=== PATIENT | male | born 1955 | race Caucasian/White ===

== ENCOUNTER 2018-05-25 15:49 | Emergency (ER) | payer BC, OTHER ==
[2018-05-25 16:41] VITALS: BP 107/65
[2018-05-25] MEDS ORDERED: Tetan/Diph/Pertus SYR(Tdap)* 0.5 ML SYR(BOOSTRIX) use SYR IM ONE (16:45)
[2018-05-25] MEDS ORDERED: Cephalexin CAP* 500 MG PO ONE (16:53)
[2018-05-25] MEDS ORDERED: Ciprofloxacin TAB* 500 MG PO ONE (16:54)
--- NOTE | 2018-05-25 17:13 | UC ---
Lower Extremity/Ankle HPI - HPI Summary HPI Summary: Patient states that around 3:30 PM today he stepped on a long nail that went through his shoe. He estimates that about 2 inches of the nail pierced through his left foot. He was unable to bear weight and pain shoots to the dorsum of his foot up to his calf. He states this happened in the shed that was previously a chicken coop. - History of Current Complaint Chief Complaint: UCWounds Stated Complaint: LEFT FOOT PUNCTURE WOUND Time Seen by Provider: 05/25/18 16:30 Hx Obtained From: Patient Onset/Duration: Sudden Onset, Lasting Hours Severity Initially: Moderate Severity Currently: Moderate Pain Intensity: 6 Aggravating Factor(s): Standing, Ambulation Alleviating Factor(s): Rest - Risk Factors Gout Risk Factors: Male DVT Risk Factors: Negative Septic Arthritis Risk Factor: Negative - Allergies/Home Medications Allergies/Adverse Reactions: Allergies Allergy/AdvReac Type Severity Reaction Status Date / Time Sulfa (Sulfonamide AdvReac Nausea Verified 05/25/18 16:41 Antibiotics) Home Medications: Home Medications Acetaminophen/Diphenhydramine [Acetaminophen Pm Caplet] 2 each PO BEDTIME [History Confirmed 05/25/18] Gabapentin 800 mg PO BID 05/25/18 [History Confirmed 05/25/18] Magnesium Oxide/Magnesium [Magnesium Elemental] 800 mg PO DAILY 05/25/18 [ History Confirmed 05/25/18] Propranolol TAB* [Inderal TAB*] 10 mg PO BID 05/25/18 [History Confirmed ] Sertraline HCl [Zoloft] 200 mg PO DAILY 05/25/18 [History Confirmed 05/25/18] Simvastatin [Zocor] 40 mg PO BEDTIME 05/25/18 [History Confirmed 05/25/18] Vitamin B Complex CAP* [B Complex CAP*] 1 cap PO DAILY 05/25/18 [History Confirmed 05/25/18] PMH/Surg Hx/FS Hx/Imm Hx Previously Healthy: Yes Endocrine History: Dyslipidemia Psychological History: Depression - Surgical History Surgical History: Yes Surgery Procedure, Year, and Place: GALL BLADDER,RIGHT KNEE ARTHOSCOPY. CLEF PALLET. RILGHT ARM INJURY REPAIR. NERVE BLOCK IN LUMBAR AREA IN SEPTEMBER 2014 - Social History Alcohol Use: None Substance Use Type: None Smoking Status (MU): Never Smoked Tobacco - Immunization History Most Recent Tetanus Shot: PT BELIEVES IT WAS 3 YEARS AGO Review of Systems Constitutional: Negative Musculoskeletal: Arthralgia, Myalgia All Other Systems Reviewed And Are Negative: Yes Physical Exam Triage Information Reviewed: Yes Appearance: Well-Appearing, No Pain Distress, Well-Nourished Vital Signs: Initial Vital Signs Temp 98 F 05/25/18 16:32 Pulse 91 05/25/18 16:32 Resp 16 05/25/18 16:32 BP 107/65 05/25/18 16:32 Pulse Ox 96 05/25/18 16:32 Vital Signs Reviewed: Yes Eyes: Positive: Conjunctiva Clear ENT: Positive: Normal ENT inspection Neck: Positive: Supple Respiratory: Positive: Chest non-tender Cardiovascular: Positive: Pulses Normal, Brisk Capillary Refill Musculoskeletal: Positive: Strength Intact, ROM Intact, No Edema, Other: - puncture wound on plantar aspect of left foot between 2nd and 3rd metatarsals. No soiling, no discharge, no induration, non tender to palpation Lower Extremity Course/Dx - Course Course Of Treatment: follow up with orthopedic surgery, s/p puncture wound with small foreign body btwn 2-3rd metatarsals of left foot. Continue antibiotics as prescribed, may take tylenol for pain as needed - Differential Dx/Diagnosis Provider Diagnoses: puncture wound foot. Foreign body in foot Discharge - Sign-Out/Discharge Documenting (check all that apply): Patient Departure All imaging exams completed and their final reports reviewed: Yes - Discharge Plan Condition: Stable Disposition: HOME Prescriptions: Cephalexin CAP* [Keflex CAP*] 500 mg PO TID 7 Days #21 cap Ciprofloxacin TAB* [Cipro 500 MG TAB*] 500 mg PO BID 7 Days #14 tab Patient Education Materials: Soft Tissue Foreign Body (ED), Puncture Wound (ED) , Ciprofloxacin (By mouth), Cephalexin (By mouth) Referrals: Orestes Argueta MD [Primary Care Provider] - Additional Instructions: please follow up with orthopedic surgery - Billing Disposition and Condition Condition: STABLE Disposition: Home
[2018-05-25] MEDS ORDERED: Ibuprofen TAB* 600 MG PO ONE (17:18)
--- NOTE | 2018-05-25 17:32 | RAD ---
INDICATION: The patient stepped on a nail. Although the puncture wound is reported to be on the plantar surface of the left foot in the region of the metatarsophalangeal joint, patient is reported on the dorsal foot. COMPARISON: None. TECHNIQUE: 2 views of the left foot were obtained. FINDINGS: On the AP view of the foot there is a tiny radiodense fragment in between the distal metaphyses of the second and third metatarsals. The adequately corticated bones are properly aligned. Joint spaces appear maintained. No fracture, dislocation or focal bony abnormality is seen. IMPRESSION: POSSIBLE METAL FRAGMENT LOCATED BETWEEN THE DISTAL METAPHYSES OF THE SECOND AND THIRD METATARSALS.
== END 2018-05-25 18:16 | disposition home or self-care (01) ==
LOC: UCCORT 15:49
DX: S91.332A Puncture wound without foreign body, left foot, initial encounter (principal); W45.0XXA Nail entering through skin, initial encounter; Y92.89 Other specified places as the place of occurrence of the external cause; Z23 Encounter for immunization
CPT/HCPCS: 90471; 90715; 99213; A9270-GY; G0463

== ENCOUNTER 2019-04-28 09:00 | Inpatient (IN) | payer BC ==
--- NOTE | 2019-04-18 14:24 | HP ---
HISTORY AND PHYSICAL: DATE OF ADMISSION/SURGERY: 04/28/19 DATE OF OFFICE VISIT: 04/15/19 SURGEON: Dr. Gabi Rodriguez. PROCEDURE: Revision left total knee replacement, femoral component . CHIEF COMPLAINT: Left knee pain. HISTORY OF PRESENT ILLNESS: Mr. Alvarado is a 63-year-old gentleman with 2 years of severe left knee pa in. The patient reports that he had a left total knee arthroplasty [address] Quijano in [facility]. Since that time, he has had severe 10/10 pain in the left knee. The patient reports for the first year he was okay, then he developed increasingly left knee pain over the last year. The patien t reports that this has become severe pain and has had swelling in the left knee. He can no longer a mbulate a block without severe severe. He has difficulty standing and stair climbing. He has had tr ied antiinflammatories, physical therapy and has used a cane without any relief. PAST MEDICAL HISTORY: 1. Osteoarthritis. 2. Depression. 3. Anxiety. PAST SURGICAL HISTORY: 1. Gastric bypass in 2014. 2. Left total knee arthroplasty in 2015. 3. Cholecystectomy in 2001. 4. Sinus surgery in 2004. MEDICATIONS: 1. Cyclobenzaprine HCL 10 mg p.o. daily. 2. Gabapentin 400 mg p.o. daily. 3. Sertraline HCL 100 mg p.o. daily. 4. Bupropion hydrochloride ER 100 mg p.o. daily. 5. Simvastatin 40 mg DICTATION ENDS HERE LINDY MURDOCK [id number]/[facility] #: [id number]
--- NOTE | 2019-04-18 15:47 | HP ---
AMENDED REPORT NOW INCLUDES DESIGNATED COSIGNER HISTORY AND PHYSICAL: DATE OF ADMISSION/SURGERY: 04/28/19 DATE OF OFFICE VISIT: 04/15/19 SURGEON: Dr. Gabi Rodriguez.* (DICTATED BY LINDY MEEKS) PROCEDURE: Revision left total knee replacement, femoral component, possible all three. CHIEF COMPLAINT: Left knee pain. HISTORY OF PRESENT ILLNESS: Mr. Sanchez is a 63-year-old gentleman with 2 years of severe left knee pain. He reports that he had a left total knee arthroplasty [address] Quijano in [place]. Since that time he has had severe 10/10 pain in the left knee. The patient reports that he also has some swelling of the left knee. He can no longer ambulate a block without severe pain. He has difficulty standing and stair climbing. He has had tried antiinflammatories, physical therapy, and has used a cane without relief. PAST MEDICAL HISTORY: 1. Osteoarthritis. 2. Depression. 3. Anxiety. PAST SURGICAL HISTORY: 1. Gastric bypass in 2014. 2. Left total knee arthroplasty in 2015. 3. Cholecystectomy in 2001. 4. Sinus surgery in 2004. MEDICATIONS: 1. Cyclobenzaprine HCL 10 mg p.o. daily. 2. Gabapentin 400 mg p.o. daily. 3. Sertraline HCL 100 mg p.o. daily. 4. Bupropion hydrochloride ER 100 mg p.o. daily. 5. Simvastatin 40 mg p.o. daily. 6. Propranolol HCL 10 mg 2 tablets p.o. daily. 7. Flintstones gummies complete. 8. HM vitamin B12 500 mcg 1 p.o. daily. 9. D3 dots 2000 units, 2 tablets p.o. daily. 10. Tylenol PM 3 tablets p.o. daily at bedtime. 11. Magnesium 400 mg 1 p.o. daily. 12. CBD oil. ALLERGIES: SULFA ANTIBIOTICS. FAMILY HISTORY: Negative for coronary artery disease, hypertension, diabetes, cancer, DVT or PE. 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 He lives at home with his . He denies tobacco, reactional drug use or alcohol use. He is right hand dominant. REVIEW OF SYSTEMS: General: Negative for fevers, chills, night sweats, unexplained weight loss or gain. No known anesthesia problems. HEENT: Negative for headache, lightheadedness, syncopal episodes, visual changes. Integumentary: Negative for abrasions, lesions, open wounds. Cardiothoracic: Negative for hypertension, chest pain, palpitations, edema. Respiratory: Negative for shortness of breath with exertion, chronic cough, wheezing. GI: Negative for nausea, vomiting, diarrhea, constipation or GERD symptoms. : Negative for nocturia, urinary frequency, urgency or history of UTIs. Positive for previous kidney stones. Musculoskeletal: Positive for left knee pain. Negative for chronic or intermittent back pain or history of fractures. Neurologic: Positive for anxiety, depression. Positive for poor balance. Negative for paresthesias, numbness, history of seizure or stroke. Endocrine: Negative for diabetes or thyroid issues. Hematologic: Negative for easy bruising, anemia, bleeding disorders or history of DVT. ID: Negative for history of MRSA infection, hep C, or HIV. PHYSICAL EXAMINATION GENERAL: Well-developed, well-nourished 63-year-old male, in no acute distress. VITAL SIGNS: Height 71.5 inches, weight 227 pounds, pulse 84, BP 124/82, respirations 17, temperature 97.9, pain level 3, BMI 31.2. HEENT: Normocephalic, atraumatic. PERRLA. Extraocular movements intact. Throat is clear. NECK: Supple. No palpable lymph nodes. PULMONARY: Lungs are clear to auscultation bilaterally. No wheezes, rales, or rhonchi. CARDIO: Regular rate and rhythm. S1 and S2 normal. No murmurs, rubs or gallops. No edema. ABDOMEN: Positive bowel sounds. Soft and nontender. NEUROLOGIC: A and O x3. Cranial nerves II through XII intact. Sensation is intact to light touch. MUSCULOSKELETAL: Left lower extremity: The patient's skin is intact. No abrasions or open wounds. No palpable masses or lymph nodes. Moderate to large effusion at the knee joint. No erythema or warmth. Healed midline incision. Range of motion is 10 to 100 degrees of flexion at the knee. There is some MCL laxity, but they does appear to be an endpoint distally. No edema, varicosities or hyperreflexia. 5/5 ankle dorsiflexion and plantar flexion strength. Full sensation to light touch in all nerve distributions and 2+ palpation DP pulse. DIAGNOSTIC STUDIES: Radiograph: Multiple view of the patient's left knee shows cemented total knee arthroplasty. There is a femoral component that has had some obvious anterior loosening. There is a complete lucency along the anterior implant on lateral view. There is some periprosthetic osteolysis in the medial and lateral femoral condyle. Tibial component has osteolysis along the medial edge. There is also a triphasic bone scan from 02/04/19 indicating loosening of the femoral and tibial implant. IMPRESSION: Left knee total arthroplasty loosening and left knee pain. PLAN: The patient is scheduled to undergo a revision left total knee replacement with femoral component, possible all three, on 04/28/[address] Gabi Rodirguez. She has discussed the procedure as well as the risks and benefits with the patient and he elects to proceed. He will return to the office in 10 to 14 days postop for followup and suture removal. Upon discharge from the hospital, he will be sent home on Percocet for postoperative pain management. I-STOP was performed today in the office. LINDY MURDOCK [id number]/[facility] #: [id number] BRODIE
[~2019-04-28 09:00] MED LIST: Buffered Lidocaine 1% SYRIN* 1 ML/SYRINGE INTRADERM ONE; Lactated Ringers 1000 ML Bag* 1,000 ML IV SCH; Tranexamic Acid 1,000 MG in NS 0.9% 50 ML* (outpatient use) IV SCH
[2019-04-28] MEDS ORDERED: Propofol* 10 MG/ML 20 ML BTL ONE ×4 (10:57→17:08)
[2019-04-28] MEDS ORDERED: KETAMINE HCL* 50 MG/ML 10 ML VIAL ONE (10:58)
[2019-04-28] MEDS ORDERED: Propofol* 500 MG/50 ML BTL ONE (10:58)
[2019-04-28] MEDS ORDERED: Midazolam* 1 MG/ML 2 ML VIAL (2 MG) ONE (10:58)
[2019-04-28] MEDS ORDERED: ROPIVACAINE 5 MG/ML 30 ML BTL (0.5%) ONE ×2 (10:59→12:13)
[2019-04-28] MEDS ORDERED: Lidocaine 2% PF * 5 ML VIAL ONE ×2 (10:59→13:37)
--- OUTSIDE RECORDS SUMMARY | 2019-04-28 11:00 | XMS REPORT | Continuity of Care Document ---
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 Onset: 03/11/2019 Arthroplasty of knee Gabi Rodriguez M.D. Onset: 03/11/2019 Social History Type Date Description Comments Sex Unknown Lives With Spouse Occupation Currently Working ETOH Use Never used alcohol Tobacco Use Start: Unknown Patient has never smoked Smoking Status Reviewed: 04/15/19 Patient has never smoked Allergies, Adverse Reactions, Alerts Active Allergies Reaction Severity Comments Date Sulfa Antibiotics 03/11/2019 Medications Active Medications SIG Qnty Indications Ordering Provider Date Cyclobenzaprine HCL Orestes Argueta MD 10mg Tablets Gabapentin Naomi Burt, 400mg Capsules HUMAN RESOURCE MANAGEMENT INSTRUCTOR/PA Sertraline HCL Naomi Burt, 100mg Tablets HUMAN RESOURCE MANAGEMENT INSTRUCTOR/PA Bupropion Hydrochloride Naomi Burt, ER (SR) HUMAN RESOURCE MANAGEMENT INSTRUCTOR/PA 100mg Tablets ER 12HR Simvastatin Orestes Argueta MD 40mg Tablets Propranolol HCL 2 tab daily Unknown 10mg Tablets Flintstones Gummies Unknown Complete Chewtabs HM Vitamin B12 1 by mouth every Unknown 500mcg Tablets day D3 Dots take two Unknown 2000Unit Tablets capsule/tablet Dispers daily by mouth Tylenol PM 3 tab by mouth Unknown Tablets daily at at bedtime Magnesium 1 by mouth every Unknown 400mg Tablets day CBD Oil Unknown Immunizations CPT Code Status Date Vaccine Lot # [id number] Given 07/19/1999 Influenza Virus 3Yrs & Over Vital Signs Date Vital Result Comment 04/15/2019 8:04am Height 71.5 inches 5'11.50" Weight 227.00 lb Heart Rate 84 /min BP Systolic 124 mmHg BP Diastolic 82 mmHg Respiratory Rate 17 /min Body Temperature 97.9 F Pain Level 3 BMI (Body Mass Index) 31.2 kg/m2 03/11/2019 9:16am Height 71.5 inches 5'11.50" Weight 229.00 lb Heart Rate 72 /min BP Systolic 118 mmHg BP Diastolic 78 mmHg Respiratory Rate 16 /min Pain Level 5 BMI (Body Mass Index) 31.5 kg/m2 Encounters Type Date Location Provider Dx Diagnosis Office Visit 03/11/2019 [facility] Gab[facility] Rodriguez, M25.562 Pain in left knee 8:[facility] M25.462 Effusion, left knee Z96.652 Presence of left artificial knee joint T84.033A [facility] loosening of internal left knee prosthetic joint, init Plan of Treatment Future Appointment(s):05/08/2019 9:15 am - Gabi Rodriguez M.D. at [facility]04/28/2019 12:00 pm - STEFANO Holley [facility]04/28/2019 12:00 pm - STEFANO Navarro at [facility]/28/2019 12:00 pm - [facility]04/15/2019 - Gabi Rodriguez M.D.Z96.652 Presence of left artificial knee jointFollow up:10-14 days post opT84.033D Mechanical loosening of internal left knee prosthetic joint,
--- OUTSIDE RECORDS SUMMARY | 2019-04-28 11:00 | XMS REPORT | Continuity of Care Document ---
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 Orestes Argueta MD Primary Care Physician Unavailable Payers Date Identification Numbers Payment Provider Subscriber Expires: 2016 Policy Number: [id number] [employer] Heather Alvarado PayID: [id number] [address] [place] [address] Policy Number: [id number] Cathy Alvarado PayID: [id number] [place] [address] Expires: 2012 Policy Number: [id number] Cathy Alvarado PayID: [id number] [place] [address] Expires: 2010 Policy Number: [id number] Cathy Stephens Odell PayID: [id number] [place] [address] Problems Active Problems Provider Date Hyperlipidemia Tyler Ann M.D., FAC Onset: 11/26/2014 Obesity Tyler Ann M.D., FACC Onset: 11/26/2014 Left bundle branch block Tyler Ann M.D., FACC Onset: 12/14/2014 Essential (primary) hypertension Zainab Nuñez, MSN, [employer] Onset: Obstructive sleep apnea syndrome Agustin Rice MD Onset: 07/22/2015 Allergic rhinitis Agustin Rice MD Onset: 07/22/2015 Atopic dermatitis Agustin Rice MD Onset: 07/22/2015 Contact dermatitis Agustin Rice MD Onset: 07/22/2015 Gastroesophageal reflux disease Agustin Rice MD Onset: 07/22/2015 Note: Upper to D2 Jul 2015 Degenerative joint disease involving multiple Agustin Rice MD Onset: 2014 joints Note: R meniscectomy Adult health examination Hue Yun PA-C Onset: 09/05/2015 Note: colo to cecum Jul 2015 Cardiomyopathy, unspecified Tyler Ann M.D., [facility] Onset: 12/29/2015 Preoperative cardiovascular Tyler Ann M.D., [facility] Onset: 04/05/2016 examination Malaise and fatigue Tyler Ann M.D., [facility] Onset: 04/05/2016 Knee pain Amador Quijano M.D. 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 Right-handed Tobacco Use Start: Unknown End: Quit Unknown Cigarette Use Pack Years - 08 Smoking Status Reviewed: 04/09/19 Quit ETOH Use Denies alcohol use Tobacco Use Start: Unknown End: Patient is a former quit 38+ years ago Unknown smoker Recreational Drug Use Denies Drug Use Allergies, Adverse Reactions, Alerts Active Allergies Reaction Severity Comments Date Sulfa Drugs Severe vomiting 10/02/2012 GoLYTELY nausea Moderate 09/05/2015 Medications Active Medications SIG Qnty Indications Ordering Date Provider Sertraline HCL 1 tabs by mouth 30tabs Unknown 100mg every day Tablets Tylenol PM Extra 2 tab by mouth Unknown Strength every night at 500-25mg Tablets bedtime Vitamin D3 1 by mouth every Unknown 2000Iu Chewtabs day Magnesium 2 by mouth every Unknown 400mg Tablets day Vitamin B-12 1 by mouth every Unknown 500mcg day Lozenges Cyclobenzaprine HCL 1 by mouth three Unknown 10mg times a day as Tablets needed muscle spasms Propranolol HCL 1 tab by mouth 60tabs Unknown 10mg twice a day Tablets Gabapentin 1 tab caps three Unknown 400mg Capsules times a day Simvastatin 1/2 tab by mouth Unknown 40mg Tablets every day Flintstones Complete 1 tabs by mouth Unknown 60mg every day Chewtabs Celebrex 1 tab by mouth Unknown 100mg Capsules once a day as needed for pain and swelling History Medications Diclofenac Sodium Take 1 Tablet By 60tabs Mary Garcia, 07/11/2018 - 75mg Mouth Twice MD Unknown Tablets DR Daily With Food Golyteronnell drink 1 cup 1bottle Z12.11 Agustin Rice, 07/22/2015 - 227.1gm Solution every 10'; drink 09/05/2015 Rec half of jug the evening before the procedure, the other half the morning of the procedure Omeprazole 1 by mouth every 90caps Agustin Rice, 07/22/2015 - 10mg Capsules day 10/04/2016 Ciprofloxacin HCL 1 by mouth twice Unknown - 500mg a day 06/05/2018 Tablets Cephalexin 1 by mouth three Orestes Argueta, - 500mg Capsules times a day 06/05/2018 Flucelvax Quadrivalent Unknown - [id number] 05/26/2018 0.5ml Ellen Levofloxacin Orestes Argueta, - 500mg 05/26/2018 Tablets Pneumovax 23 Unknown - 25mcg/0.5ML 05/26/2018 Injection Multivitamin Adult 1 by mouth every Unknown - day 05/26/2018 Tablets Gabapentin 1 po Am, 2 po Unknown - 400mg Capsules noon, 1 po 10/04/2016 evening Advil PM 2 caps by mouth Unknown - 200-25mg every night Unknown Capsules Fluocinonide Orestes Argueta, - 0.05% Cream Unknown Gabapentin Unknown - 300mg Capsules 07/22/2015 Cyclobenzaprine HCL 1 po tid Orestes Argueta, - 5mg MD Unknown Tablets Tramadol HCL 1 po tid Unknown - 50mg Tablets 09/05/2015 Losartan Potassium 1 po qd Naomi Burt - 50mg YOBANY Lehman/LINDY 10/04/2016 Tablets Tylenol Arthritis Pain po qd/prn Unknown - 05/26/2018 650mg Tablets ER Cialis Unknown - 5mg Tablets Unknown Omeprazole 1 po qd Unknown - 20mg Capsules 07/22/2015 Meloxicam 1 po q day / 30taBryce Copeland - 15mg Tablets nikki Stahl MD, FACS 10/04/2016 Advil as needed Unknown - 200mg Tablets 07/22/2015 Diovan 1 by mouth every Unknown - 80mg Tablets day 07/22/2015 Simvastatin 1 po qd Unknown - 40mg Tablets 09/05/2015 Vital Signs Date Vital Result Comment 04/09/2019 10:54am BP Systolic Sitting Left Arm 110 mmHg BP Diastolic Sitting Left Arm 84 mmHg Heart Rate 68 /min Respiratory Rate 18 /min Height 74 inches 6'2" Weight 226.00 lb BMI (Body Mass Index) 29.0 kg/m2 BSA (Body Surface Area) 2.29 m2 Antelope body weight in kilograms 86 kg O2 % BldC Oximetry 97 % Ora 02/13/2019 8:56am BP Systolic Sitting Left Arm 129 mmHg BP Diastolic Sitting Left Arm 74 mmHg Body Temperature 97.7 F Heart Rate 76 /min Height 74 inches 6'2" Weight 230.00 lb BMI (Body Mass Index) 29.5 kg/m2 BSA (Body Surface Area) 2.31 m2 Antelope body weight in kilograms 86 kg O2 % BldC Oximetry 97 % 01/30/2019 8:11am BP Systolic 108 mmHg BP Diastolic 70 mmHg Body Temperature 97.8 F Heart Rate 95 /min Height 74 inches 6'2" Weight 232.00 lb BMI (Body Mass Index) 29.8 kg/m2 BSA (Body Surface Area) 2.31 m2 Antelope body weight in kilograms 86 kg O2 % BldC Oximetry 97 % 07/11/2018 8:02am BP Systolic 120 mmHg BP Diastolic 78 mmHg Body Temperature 96.7 F Heart Rate 78 /min Height 74 inches 6'2" Weight 223.00 lb BMI (Body Mass Index) 28.6 kg/m2 BSA (Body Surface Area) 2.28 m2 Antelope body weight in kilograms 86 kg O2 % BldC Oximetry 96 % Pain Level 3 07/08/2018 8:00am BP Systolic 126 mmHg BP Diastolic 76 mmHg Heart Rate 74 /min Height 74 inches 6'2" Weight 219.00 lb BMI (Body Mass Index) 28.1 kg/m2 BSA (Body Surface Area) 2.26 m2 Antelope body weight in kilograms 86 kg O2 % BldC Oximetry 96 % 06/05/2018 8:11am BP Systolic 134 mmHg BP Diastolic 75 mmHg Body Temperature 97.7 F Heart Rate 81 /min Respiratory Rate 16 /min Height 71 inches 5'11" Weight 219.00 lb BMI (Body Mass Index) 30.5 kg/m2 BSA (Body Surface Area) 2.19 m2 Antelope body weight in kilograms 78 kg O2 % BldC Oximetry 97 % room air Pain Level 2 05/26/2018 2:21pm BP Systolic Sitting Left Arm 108 mmHg BP Diastolic Sitting Left Arm 69 mmHg Body Temperature 99.0 F Heart Rate 82 /min Respiratory Rate 17 /min Height 72 inches 6'0", As per patient Weight 218.00 lb BMI (Body Mass Index) 29.6 kg/m2 BSA (Body Surface Area) 2.21 m2 Antelope body weight in kilograms 81 kg O2 % BldC Oximetry 95 % 09/17/2017 8:13am BP Systolic Sitting Left Arm 122 mmHg BP Diastolic Sitting Left Arm 76 mmHg Heart Rate 87 /min Respiratory Rate 16 /min Height 70.50 inches 5'10.50" Weight 216.00 lb BMI (Body Mass Index) 30.6 kg/m2 BSA (Body Surface Area) 2.17 m2 Antelope body weight in kilograms 77 kg 03/13/2017 8:11am BP Systolic Sitting Left Arm 104 mmHg BP Diastolic Sitting Left Arm 70 mmHg Heart Rate 78 /min Respiratory Rate 18 /min Height 70.50 inches 5'10.50" Weight 207.00 lb BMI (Body Mass Index) 29.3 kg/m2 BSA (Body Surface Area) 2.13 m2 Antelope body weight in kilograms 77 kg 07/27/2016 10:28am BP Systolic Sitting Right Arm 122 mmHg BP Diastolic Sitting Right Arm 82 mmHg Heart Rate 81 /min Respiratory Rate 18 /min Height 70.50 inches 5'10.50" Weight 274.00 lb BMI (Body Mass Index) 38.8 kg/m2 BSA (Body Surface Area) 2.40 m2 04/16/2016 11:22am BP Systolic 116 mmHg BP Diastolic 81 mmHg Heart Rate 87 /min Height 70.50 inches 5'10.50" Weight 277.00 lb BMI (Body Mass Index) 39.2 kg/m2 BSA (Body Surface Area) 2.41 m2 Antelope body weight in kilograms 77 kg 04/05/2016 10:26am BP Systolic Sitting Right Arm 118 mmHg BP Diastolic Sitting Right Arm 89 mmHg Heart Rate 74 /min Respiratory Rate 16 /min Height 71.75 inches 5'11.75" Weight 277.00 lb BMI (Body Mass Index) 37.8 kg/m2 BSA (Body Surface Area) 2.44 m2 04/04/2016 9:50am BP Systolic Sitting Left Arm 128 mmHg BP Diastolic Sitting Left Arm 84 mmHg Heart Rate 70 /min Height 71.75 inches 5'11.75" Weight 272.00 lb BMI (Body Mass Index) 37.1 kg/m2 BSA (Body Surface Area) 2.42 m2 Antelope body weight in kilograms 80 kg 12/29/2015 9:04am BP Systolic Sitting Left Arm 118 mmHg BP Diastolic Sitting Left Arm 68 mmHg Heart Rate 72 /min Height 74 inches 6'2" Weight 280.00 lb BMI (Body Mass Index) 35.9 kg/m2 BSA (Body Surface Area) 2.51 m2 09/05/2015 2:27pm BP Systolic 131 mmHg BP Diastolic 84 mmHg Heart Rate 92 /min Height 71.5 inches 5'11.50" Weight 276.00 lb BMI (Body Mass Index) 38.0 kg/m2 BSA (Body Surface Area) 2.43 m2 07/22/2015 2:59pm BP Systolic 126 mmHg BP Diastolic 88 mmHg Heart Rate 96 /min Respiratory Rate 24 /min Height 71.5 inches 5'11.50" Weight 272.00 lb BMI (Body Mass Index) 37.4 kg/m2 BSA (Body Surface Area) 2.42 m2 06/16/2015 8:59am BP Systolic Sitting Right Arm 128 mmHg BP Diastolic Sitting Right Arm 86 mmHg Heart Rate 78 /min Respiratory Rate 16 /min Height 71.5 inches 5'11.50" Weight 264.00 lb BMI (Body Mass Index) 36.3 kg/m2 BSA (Body Surface Area) 2.39 m2 12/14/2014 2:11pm BP Systolic Sitting Right Arm 118 mmHg BP Diastolic Sitting Right Arm 90 mmHg Heart Rate 78 /min Respiratory Rate 20 /min Height 71.5 inches 5'11.50" Weight 276.00 lb BMI (Body Mass Index) 38.0 kg/m2 BSA (Body Surface Area) 2.43 m2 11/26/2014 4:15pm BP Systolic Sitting Right Arm 112 mmHg BP Diastolic Sitting Right Arm 78 mmHg Heart Rate 86 /min Respiratory Rate 16 /min Height 71.5 inches 5'11.50" Weight 279.00 lb BMI (Body Mass Index) 38.4 kg/m2 BSA (Body Surface Area) 2.44 m2 10/02/2012 8:57am BP Systolic Sitting Right Arm 118 mmHg BP Diastolic Sitting Right Arm 72 mmHg Height 71.5 inches 5'11.50" Weight 275.00 lb BMI (Body Mass Index) 37.8 kg/m2 Results Test Date Facility Test Result H/L Range Note CBS 03/13/2017 [facility] White Blood 7.1 K/uL Normal 3.4-10.5 1 W/Automated [address] [place] [address] [phone] Red Blood Count 4.24 M/uL Normal 4.20-5.80 Hemoglobin 15.2 gm/dL Normal 12.8-17.0 Hematocrit 42.2 % Normal 38.0-48.0 Mean Cell Volume 99.5 fl High 80.0-96.0 Mean Corpuscular HGB 35.8 pg High 27.0-33.0 Mean Corpuscular HGB Conc 36.0 g/dL Normal 31.7-36.0 Platelet Count 206 K/uL Normal 150-400 Red Cell Distri Width SD 44.7 fl Normal 36-51 Red Cell Distri Width %CV 12.1 % Normal 11.6-15.8 Mean Platelet Volume 9.4 fL Normal 6.6-10.6 Neut% 74.3 % High 33.0-73.0 Lymph % 17.2 % Low 20.0-42.0 [place] % 7.6 % Normal 0.0-10.0 Eo% 0.6 % Normal 0.0-6.6 Bas% 0.3 % Normal 0.0-1.1 Neut# 5.31 K/uL Normal 1.8-7.0 Lymph # 1.23 K/uL Normal 1.0-4.0 [place] # 0.54 K/uL Normal 0.0-0.8 Eos # 0.04 K/uL Normal 0.0-0.5 Baso # 0.02 K/uL Normal 0.0-0.1 Glycohemoglobin 03/13/2017 [facility] Glycohemoglobin 5.4 % Normal 4.2-6.3 [address] [facility] (A1c) [place], [place] [id number] [phone] eAG 108 mg/dL Iron-Tibc-%Sat 03/13/2017 [facility] Serum Iron 91 g/dL Normal 65-175 [address] [place], [place] [id number] [phone] Total Iron Binding Capacity 348 g/dL Normal 250-450 Transferrin %Saturation 26 % Normal 12-57 Laboratory test 03/13/2017 [facility] Vitamin B12 448 pg/mL Normal 193-986 finding [address] [place], [place] [id number] [phone] Folic Acid 33.1 ng/mL High 3.1-17.5 Ferritin 153 ng/mL Normal 26-388 Comprehensive Metabolic 03/13/2017 [facility] Glucose 71 mg/dL Low 74-106 Panel [address] [place], [place] [id number] [phone] BUN 19 mg/dL High 7-18 Creatinine 1.0 mg/dL Normal 0.6-1.3 Glom Filtration Rate, Estimate >60 mL/min >60 If >60 mL/min >60 3 BUN/Creat 19.0 ratio Sodium 142 mmol/L Normal 136-145 Potassium 4.0 mmol/L Normal 3.5-5.1 Chloride 105 mmol/L Normal 98-107 Carbon Dioxide 32 mmol/L Normal 21-32 Anion Gap 5 mEq/L Low 8-16 Calcium 8.5 mg/dL Normal 8.5-10.1 Total Protein 7.2 g/dL Normal 6.4-8.2 Albumin 3.6 g/dL Normal 3.4-5.0 Globulin 3.6 g/dL Normal 1.9-4.3 Alb/Glob 1.0 ratio Bilirubin,Total 0.5 mg/dL Normal 0.2-1.0 Sgot/Ast 20 U/L Normal 15-37 SGPT/Alt 22 U/L Normal 12-78 Alkaline Phosphatase 92 U/L Normal 45-117 Laboratory test 03/13/2017 [facility] Phosphorous 2.7 mg/dL Normal 2.5-4.0 finding [address] [place] [address] [phone] Magnesium 1.9 mg/dL Normal 1.8-2.4 Vitamin D,25-Hydroxy 46.3 ng/mL 30.0-100.0 4 CBC 04/28/2016 [facility] White Blood Count 8.0 K/uL 3.4-10.5 [address] [place] [address] [phone] Red Blood Count 3.58 M/uL Low 4.20-5.80 Hemoglobin 11.9 gm/dL Low 12.8-17.0 Hematocrit 34.9 % Low 38.0-48.0 Mean Cell Volume 97.5 fl High 80.0-96.0 Mean Corpuscular HGB 33.2 pg High 27.0-33.0 Mean Corpuscular HGB Conc 34.1 g/dL 31.7-36.0 Platelet Count 209 K/uL 150-400 Red Cell Distri Width %CV 11.9 % 11.6-15.8 Mean Platelet Volume 9.0 fL 6.6-10.6 CBC 04/27/2016 [facility] White Blood Count 9.3 K/uL 3.4-10.5 [address] [place] [address] [phone] Red Blood Count 3.80 M/uL Low 4.20-5.80 Hemoglobin 12.5 gm/dL Low 12.8-17.0 Hematocrit 37.0 % Low 38.0-48.0 Mean Cell Volume 97.4 fl High 80.0-96.0 Mean Corpuscular HGB 32.9 pg 27.0-33.0 Mean Corpuscular HGB Conc 33.8 g/dL 31.7-36.0 Platelet Count 180 K/uL 150-400 Red Cell Distri Width %CV 11.9 % 11.6-15.8 Mean Platelet Volume 9.4 fL 6.6-10.6 CBC 04/26/2016 [facility] White Blood Count 10.2 K/uL 3.4-10.5 [address] [place] [address] [phone] Red Blood Count 3.49 M/uL Low 4.20-5.80 Hemoglobin 11.6 gm/dL Low 12.8-17.0 Hematocrit 33.9 % Low 38.0-48.0 Mean Cell Volume 97.1 fl High 80.0-96.0 Mean Corpuscular HGB 33.2 pg High 27.0-33.0 Mean Corpuscular HGB Conc 34.2 g/dL 31.7-36.0 Platelet Count 152 K/uL 150-400 Red Cell Distri Width %CV 11.8 % 11.6-15.8 Mean Platelet Volume 9.3 fL 6.6-10.6 CBC 04/26/2016 [facility] White Blood Count 10.6 K/uL High 3.4-10.5 [address] [place] [address] [phone] Red Blood Count 3.57 M/uL Low 4.20-5.80 Hemoglobin 11.8 gm/dL Low 12.8-17.0 Hematocrit 35.0 % Low 38.0-48.0 Mean Cell Volume 98.0 fl High 80.0-96.0 Mean Corpuscular HGB 33.1 pg High 27.0-33.0 Mean Corpuscular HGB Conc 33.7 g/dL 31.7-36.0 Platelet Count 172 K/uL 150-400 Red Cell Distri Width %CV 12.0 % 11.6-15.8 Mean Platelet Volume 9.7 fL 6.6-10.6 CBC 04/25/2016 [facility] White Blood Count 14.8 K/uL High 3.4-10.[address] [place] [phone] Red Blood Count 3.91 M/uL Low 4.20-5.80 Hemoglobin 13.1 gm/dL 12.8-17.0 Hematocrit 37.9 % Low 38.0-48.0 Mean Cell Volume 96.9 fl High 80.0-96.0 Mean Corpuscular HGB 33.5 pg High 27.0-33.0 Mean Corpuscular HGB Conc 34.6 g/dL 31.7-36.0 Platelet Count 186 K/uL 150-400 Red Cell Distri Width %CV 11.9 % 11.6-15.8 Mean Platelet Volume 9.4 fL 6.6-10.6 Laboratory test 04/24/2016 [facility] Pathology See Note [address] Specimen [place], [place] [id number] [phone] Laboratory test 04/24/2016 [facility] Laboratory Surgical SEE RESULT 6, 7 finding [phone] Interface Order BELOW Basic Metabolic 04/17/2016 [facility] Glucose 102 mg/dL 74-[address] [place] [address] [phone] BUN 13 mg/dL 7-18 Creatinine 1.0 mg/dL 0.6-1.3 Glom Filtration Rate, Estimate >60 mL/min >60 If >60 mL/min >60 8 BUN/Creat 13.0 ratio Sodium 140 mmol/L 136-145 Potassium 3.8 mmol/L 3.5-5.1 Chloride 107 mmol/L 98-107 Carbon Dioxide 29 mmol/L 21-32 Anion Gap 4 mEq/L Low 8-16 Calcium 8.5 mg/dL 8.5-10.1 CBC 04/17/2016 [facility] White Blood Count 6.0 K/uL 3.4-10.[address] [place], [place] [id number] [phone] Red Blood Count 4.65 M/uL 4.20-5.80 Hemoglobin 15.4 gm/dL 12.8-17.0 Hematocrit 44.2 % 38.0-48.0 Mean Cell Volume 95.1 fl 80.0-96.0 Mean Corpuscular HGB 33.1 pg High 27.0-33.0 Mean Corpuscular HGB Conc 34.8 g/dL 31.7-36.0 Platelet Count 182 K/uL 150-400 Red Cell Distri Width %CV 11.9 % 11.6-15.8 Mean Platelet Volume 9.6 fL 6.6-10.6 Type And Screen 04/17/2016 [facility] Patient Blood Type B POS [address] [place] [address] [phone] Antibody Screen Negative Negative Urine Screen 04/17/2016 [facility] Urine Color YELLOW Yellow [address] [place] [address] [phone] Urine Clarity CLEAR Clear Urine Glucose - Dipstick NEGATIVE mg/dL Negative Urine Bilirubin - Dipstick NEGATIVE Negative Urine Ketone NEGATIVE mg/dL Negative Urine Specific Lizella 1.015 1.010-1.030 Urine Blood TRACE Negative Urine PH 6.0 Low 6.5-7.5 Urine Protein - Dipstick NEGATIVE mg/dL Negative Urine Urobilinogen - Dipstick 0.2 E.U./dL 0.2-1.0 Urine Nitrite - Dipstick NEGATIVE Negative Urine Leuk Esterase NEGATIVE Negative MRSA Screen 04/16/2016 [facility] MRSA Screen See Note 9 [address] [place] [address] [phone] Laboratory test 08/22/2015 [facility] Gastric See Note [address] Biopsy/[place] [address] [phone] CBS W/Automated 10/02/2012 [facility] White Blood 7.2 K/uL 3.4-10. Diff [address] Count [address] [place] [address] [phone] Red Blood Count 5.01 M/uL 4.20-5.80 Hemoglobin 16.4 gm/dL 12.8-17.0 Hematocrit 47.1 % 38.0-48.0 Mean Cell Volume 94.0 fl 80.0-96.0 Mean Corpuscular HGB 32.7 pg 27.0-33.0 Mean Corpuscular HGB Conc 34.8 g/dL 31.7-36.0 Platelet Count 238 K/uL 150-400 Red Cell Distri Width SD 40.4 fl 36-51 Red Cell Distri Width %CV 11.9 % 11.6-15.8 Mean Platelet Volume 9.6 fL 6.6-10.6 Neut% 68.5 % 33.0-73.0 Lymph % 20.7 % 17.0-56.0 [place] % 9.7 % 0.0-10.0 Eo% 0.7 % 0.0-5.0 Bas% 0.4 % 0.1-1.0 Neut# 4.90 K/uL 1.8-7.0 Lymph # 1.48 K/uL 1.2-4.0 [place] # 0.69 K/uL High 0.0-0.6 Eos # 0.05 K/uL 0.0-0.5 Baso # 0.03 K/uL Low 0.1-0.2 Arthritis 10/02/2012 [facility] Sedimentation Rate 2 mm/hr 0-20 Panel([place]) [address] [place] [address] [phone] Rheumatoid Factor Screen NEGATIVE Negative Uric Acid 4.1 mg/dL 2.1-7.4 Antinuclear Antibodies, Ifa Negative . 11 1 K91.2 Z98.84 E55.9 2 Elevated levels of HbA1c suggest the need for more aggressive treatment of glycemia. The [place] [employer] recommends that a primary goal of therapy should be a HbA1c of <7% and that physicians should re-evaluate the treatment regimen in patients with HbA1c values consistently >8%. 3 Note: Persistent reduction for 3 months or more in an eGFR <60 mL/min/1.73 m2 defines CKD. Patients with eGFR values >/=60 mL/min/1.73 m2 may also have CKD if evidence of persistent proteinuria is present. The original MDRD equation for estimated GFR is not valid for patients less than 18 years of age. Additional information may be found at www.kdoqi.org. 4 Vitamin D deficiency has been defined by the [place] [employer] and an Endocrine Society practice guideline as a level of serum 25-OH vitamin D less than 20 ng/mL (1,2). The Endocrine Society went on to further define vitamin D insufficiency as a level between 21 and 29 ng/mL (2). 1. IOM ([place] [employer]). 2010. Dietary reference intakes for calcium and D. [place]: The National Academies Press. 2. Josemanuel MF, Dali JAMIL, Maycol DE LEON, et al. Evaluation, treatment, and prevention of vitamin D deficiency: an Endocrine Society clinical practice guideline. JCEM. 2010; 96(7):1911-30. Performed at: RN - [facility] [address] [id number] Supervisor In Charge: Patria Mena MD, Phone: [phone] 5 L KNEE BONE AND TISSUE Hard copy of report to be sent by mail. Scanned report may be viewed in [facility] 6 [id number] SEE RESULT BELOW Name: HEATHER ALVARADO : [address]: Amador Quijano MD Acct: [id number] Unit: [id number] AGE: 60 Location: [facility] Re04/24/16 SEX: M Status: REG REF SPEC: [id number] TOBY: 04/24/16-[address]: Amador Quijano MD REQ: [id number] RECD: 04/25/16-1039 STATUS: LUANA ROSS DR[facility] _ ORDERED: [facility], LEVEL IV COMMENTS: [id number] FINAL DIAGNOSIS Bone and cartilage, left knee, arthroplasty: -- Severe degenerative osteoarthritic changes. PRE-OPERATIVE DIAGNOSIS Left knee osteoarthritis. GROSS DESCRIPTION The specimen is received in formalin labeled, Left Knee Bone and Tissue, and consists of an 11.5 x 11.0 x 3.3 cm aggregate of yellow-white irregular bone fragments. Within the aggregate is a 9.0 x 6.0 x 2.0 cm intact tibial plateau. The articular surface is smooth to granular with focal areas of eburnation. The edges are mildly nodular. [employer] Specialist sections are submitted in one cassette following decalcification. MICROSCOPIC DESCRIPTION . Signed (signature on file) Sahil Pinto MD 1604 END OF REPORT * ML=Testing performed at Main Lab DEPARTMENT OF PATHOLOGY, [address] [place] [address] Sahil Pinto M.D. Director [facility] # [id number] Note: Persistent reduction for 3 months or more in an eGFR <60 mL/min/1.73 m2 defines CKD. Patients with eGFR values >/=60 mL/min/1.73 m2 may also have CKD if evidence of persistent proteinuria is present. The original MDRD equation for estimated GFR is not valid for patients less than 18 years of age. Additional information may be found at www.kdoqi.org. 9 NO METHICILLIN RESISTANT STAPHYLOCOCCUS AUREUS ISOLATED. 10 OPERATION/PROCEDURE Colonoscopy; gastroscopy; polypectomy DIAGNOSIS: "STOMACH, BIOPSY": - FUNDIC GLAND POLYP. EP/milad 1050 GROSS Received in formalin in an appropriately labeled container with the patient' s name and accession number. The specimen is designated as "GASTRIC POLYP BIOPSY" and consists of multiple pieces of estevez soft rubbery tissue in aggregate measuring 0.8 x 0.7 x 0.4 cm. The specimen is submitted entirely in a single cassette. CC/milad PRE OPERATIVE DIAGNOSIS Screening; GERD REVIEW CODE CODE: I Signed Electronically signed Arti LEONARD MD 1110 11 Negative <1:80 Borderline 1:80 Positive >1:80 Performed at: RN - [facility] [address] [id number] Supervisor In Charge: Patria Mena MD, Phone: [phone] Procedures Date Code Description Status 04/09/2019 34088 EKG-Tracing And Report Completed 01/30/2019 45902 Radiology, Knee 3 Views Completed 07/11/2018 77835 Radiology, Knee 3 Views Completed 07/11/2018 55981 Radiology, Knee 3 Views Completed 07/09/2017 71141 Radiology, Knee 3 Views Completed 07/09/2017 11624 Radiology, Knee 3 Views Completed 03/20/2017 20874 Echocardiogram Complete Completed 03/13/2017 00257 EKG-Tracing And Report Completed 10/04/2016 74873 Radiology, Knee 3 Views Completed 07/27/2016 72030 EKG-Tracing And Report Completed 06/11/2016 80990 Radiology, Knee 3 Views Completed 04/24/2016 83597 Total Knee Arthroplasty medial&lateral compartments w/wo Completed kauffman res 04/24/2016 25058 Total Knee Arthroplasty medial&lateral compartments w/wo Completed kauffman res 04/11/2016 99768 Echocardiogram Complete Completed 04/05/2016 04379 EKG-Tracing And Report Completed 04/04/2016 02211 Radiology, Knee 3 Views Completed 04/04/2016 05347 Radiology, Knee 3 Views Completed 04/04/2016 22337 X-Ray Knee Complete W/Obliques & Tunnel And/Or Standing Completed Views 12/29/2015 50492 EKG-Tracing And Report Completed 08/22/2015 48901 Colonoscopy Completed 08/22/2015 80256 EGD With Biopsy Completed 06/28/2015 74521 Echocardiogram Complete Completed 12/09/2014 90026 Echocardiogram Complete Completed 12/09/2014 64966 Stress Test Interpre And Report Only Completed 12/09/2014 44500 Stress Test Physician Super Only Completed 12/09/2014 60907 Stress Test Physician Super Only Completed 11/26/2014 81338 EKG-Tracing And Report Completed 10/02/2012 97743 Radiology, Knee 3 Views Completed 10/02/2012 25375 Radiology, Knee 3 Views Completed 09/06/2010 59472 Anesthesia, Upper Abdomen Surgery Not Otherwise Spec Completed 08/31/2010 92993 EKG Interpretation And Report Only Completed 11/03/2008 53245 Echocardiogram Complete Completed Encounters Type Date Location Provider Dx Diagnosis Office Visit 04/09/2019 Cardiology Office NuñezZainab Z01.810 Encounter for 10:40a Ellie, MSN, preprocedural [employer] cardiovascular examination I42.9 Cardiomyopathy, unspecified I44.7 Left bundle-branch block, unspecified E78.5 Hyperlipidemia, unspecified G47.33 Obstructive sleep apnea (adult) (pediatric) Office Visit 02/13/2019 9:00a Orthopaedic Office Brittani, Z47.1 Aftercare Afsaneh S., following joint RPAC replacement surgery Z96.652 Presence of left artificial knee joint M25.562 Pain in left knee Office Visit 01/30/2019 8:15a Orthopaedic Office Afsaneh Peter M25.562 Pain in S., RPAC left knee Z47.1 Aftercare following joint replacement surgery Z96.652 Presence of left artificial knee joint Office Visit 07/08/2018 8:00a Podiatry Office Bryce Yun, B35.1 Tinea unguium DPM S91.332A Puncture wound without foreign body, left foot, init encntr Z09 Encntr for f/u exam aft trtmt for cond oth than malig neoplm Office Visit 06/05/2018 8:15a Orthopaedic Office Brittani, S91.332A Puncture wound Afsaneh S., without RPAC foreign body, left foot, init encntr M25.572 Pain in left ankle and joints of left foot Office Visit 05/26/2018 2:15p Orthopaedic Office Brittani S91.332A Puncture wound Afsaneh S., without RPAC foreign body, left foot, init encntr M25.572 Pain in left ankle and joints of left foot Office Visit 09/17/2017 Cardiology Og, I42.9 Cardiomyopathy, 8:20a Office Wan Titus, unspecified PA I44.7 Left bundle-branch block, unspecified E78.4 Other hyperlipidemia G47.33 Obstructive sleep apnea (adult) (pediatric) Office Visit 04/16/2017 2:43p Tyler Wolff R07.9 Chest pain, [facility] John Morris, FACC unspecified Center Office Visit 03/13/2017 8:10a Cardiology Wan Foley I42.9 Cardiomyopathy, Office B., PA unspecified I44.7 Left bundle-branch block, unspecified E78.4 Other hyperlipidemia R25.2 Cramp and spasm Office Visit 10/04/2016 10:15a Orthopaedic Office Samm, Z96.652 Presence of left John English artificial knee joint Office Visit 07/27/2016 9:00a Cardiology Office Marissa I42.9 Cardiomyopathy, tamie Jaffe M.D., FACC I44.7 Left bundle-branch block, unspecified Z01.810 Encounter for preprocedural cardiovascular examination Office Visit 04/05/2016 Cardiology Marissa, Z01.810 Encounter for 10:20a Office Tyler Morris M.D., preprocedural [facility] cardiovascular examination I42.9 Cardiomyopathy, unspecified I44.7 Left bundle-branch block, unspecified R53.83 Other fatigue Office Visit 04/04/2016 9:30a Orthopaedic Samm, M17.0 Bilateral primary Office John English osteoarthritis of knee M17.11 Unilateral primary osteoarthritis, right knee M17.12 Unilateral primary osteoarthritis, left knee Office Visit 12/29/2015 Cardiology Marissa I42.9 Cardiomyopathy, 9:00a Office Tyler Morris M.D., unspecified FACC I44.7 Left bundle-branch block, unspecified Office Visit 09/05/2015 2:30p Hue Benson K21.9 Gastro-esophageal reflux AMAN Mckinney disease without esophagitis Z12.11 Encounter for screening for malignant neoplasm of colon K64.8 Other hemorrhoids 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 Office Visit 07/22/2015 3:00p Agustin Noguera MD K21.9 Gastro- esophageal reflux disease without esophagitis Z12.11 Encounter for screening for malignant neoplasm of colon Office Visit 06/16/2015 Cardiology Zainab Nuñez I44.7 Left bundle-branch 8:40a Office Ellie, MSN, block, unspecified [employer] I42.9 Cardiomyopathy, unspecified E78.4 Other hyperlipidemia I10 Essential (primary) hypertension Office 12/14/2014 Cardiology Marissa, 426.3 Left Bundle Branch Visit 2:00p Office Tyler Morris M.D., Block Other FACC Office 11/26/2014 Cardiology Marissa, 794.31 Electrocardiogram Visit 4:00p Office Tyler Morris M.D., (ECG) (EKG) Abnormal FACC 272.4 Hyperlipidemia Other Unspec 401.1 Hypertension Benign 278.00 Obesity Unspec Office Visit 10/02/2012 9:00a Orthopaedic Office Bryce Ornelas 719.46 Pain Joint MD Maribeth, FACS Lower Leg 715.16 Osteoarthrosis Localized Prim Lower Leg 836.0 Dislocation Knee Tear Of Medial Cartilage Or Meniscus Curren Office Visit 02/17/2009 8:30a Surgical Office Dennis, 560.31 Gallstone Ileus Charli Black M.D. Plan of Treatment Future Appointment(s):04/11/2020 9:00 am - Zainab Nuñez, MSN, [employer] at Cardiology [facility]5604/09/2019 - Zainab Nuñez, MSN, FNPZ01.810 Encounter for preprocedural cardiovascular examinationComments:Cleared for surgery as above.I42.9 Cardiomyopathy, unspecifiedNew Orders:Echocardiogram, Ordered: 04/09Comments:We will repeat the echo to re-evaluate the LV function.I44.7 Left bundle-branch block, unspecifiedComments:Monitor.E78.5 Hyperlipidemia, unspecifiedComments:Followed by PCP.G47.33 Obstructive sleep apnea (adult) ( pediatric)Comments:Encouraged compliance with the CPAP.AllFollow up:Follow up visit in one year. Patient was instructed to call for the results of the echo.
[2019-04-28] MEDS ORDERED: Dexmedetomidine* 200 MCG/2 ML 2 ML VIAL ONE (11:04)
[2019-04-28] MEDS ORDERED: Bupivacaine 0.5% SDV PF* 30ML VIAL ONE (13:37)
[2019-04-28] MEDS ORDERED: EPHEDrine (Pressors)* 50 MG/ML VIAL ONE ×2 (14:01→16:04)
[2019-04-28] MEDS ORDERED: Dexamethasone IV* 4 MG/ML 1 ML (4 MG) ONE (14:07)
[2019-04-28] MEDS ORDERED: HYDROmorphone INJ1* 1 MG/ML SYRINGE IV PRN (15:09)
[2019-04-28] MEDS ORDERED: Ondansetron INJ* 2 MG/ML VIAL IV PRN ×2 (15:09→17:48)
[2019-04-28] MEDS ORDERED: Acetaminophen TAB* 325 MG PO PRN (15:09)
[2019-04-28] MEDS ORDERED: oxyCODONE TAB* 5 MG TAB PO PRN (15:09)
[2019-04-28] MEDS ORDERED: Ketorolac INJ* 30 MG/ML 1 ML VIAL IV PRN (15:09)
[2019-04-28] MEDS ORDERED: Naloxone* 0.4 MG/ML 1 ML VIAL IV PRN (15:09)
[2019-04-28] MEDS ORDERED: Bupivacaine 0.5%* 50 ML VIAL ONE (16:32)
[2019-04-28] MEDS ORDERED: Bupivacaine 0.5% PF 10 ML VIAL INJ ONE (17:00)
[2019-04-28] MEDS ORDERED: Magnesium Hydroxide LIQ* 30 ML UDC PO PRN (17:48)
[2019-04-28] MEDS ORDERED: diPHENhydraMINE IV* 50 MG/ML 1 ml VIAL (BENADRYL) IV PRN (17:48)
[2019-04-28] MEDS ORDERED: oxyCODONE/Acetamin 5/325 MG* TAB PO PRN (17:48)
[2019-04-28] MEDS ORDERED: diPHENhydraMINE PO* 25 MG PO PRN (17:48)
[2019-04-28] MEDS ORDERED: Ondansetron ODT TAB* 4 MG PO PRN (17:48)
[2019-04-28] MEDS ORDERED: CANNABIDIOL PO PRN (17:55)
[2019-04-28] MEDS ORDERED: ACETAMINOPHEN PO PRN (17:55)
[2019-04-28] MEDS ORDERED: DIPHENHYDRAMINE PO PRN (17:55)
[2019-04-28] MEDS: Lactated Ringers 1000 ML Bag* 1,000 ML IV SCH (19:56)
[2019-04-28] MEDS: Docusate CAP* 100 MG PO SCH (20:31)
[2019-04-28] MEDS: Gabapentin CAP(*) 400 MG PO SCH (20:31)
[2019-04-28] MEDS: oxyCODONE/Acetamin 5/325 MG* TAB PO PRN (20:31)
[2019-04-28] MEDS: Magnesium Hydroxide LIQ* 30 ML UDC PO SCH (20:32)
[2019-04-28] MEDS: Acetaminophen TAB* 325 MG PO SCH (20:33)
[2019-04-28] MEDS ORDERED: Atorvastatin* 10 MG TAB PO SCH (21:00)
[2019-04-28] MEDS ORDERED: Cholecalciferol TAB* 1000 UNITS PO SCH (21:00)
[2019-04-28] MEDS ORDERED: Vitamin B Complex TAB PO SCH (21:00)
[2019-04-28] MEDS: Cyclobenzaprine TAB* 10 MG PO PRN (21:07)
[2019-04-28] MEDS: Magnesium Oxide TAB* 400 MG PO SCH (22:03)
[2019-04-28] MEDS: ceFAZolin 1 GM ADVAN(*) 1 GM in NS 0.9% 50 ML* 50 ML IVPB SCH (22:03)
[2019-04-28] MEDS: Morphine INJ* 2 MG/ML 1 ML SYRINGE (TWO MG - NEW SYRINGE VERSION) IV PRN (22:08)
[2019-04-28] MEDS: oxyCODONE TAB* 5 MG TAB PO PRN (23:02)
[2019-04-29] MEDS: oxyCODONE/Acetamin 5/325 MG* TAB PO PRN ×4 (01:12→15:38)
[2019-04-29] MEDS: Morphine INJ* 2 MG/ML 1 ML SYRINGE (TWO MG - NEW SYRINGE VERSION) IV PRN (01:15)
[2019-04-29] MEDS: Acetaminophen TAB* 325 MG PO SCH ×2 (02:07→09:28)
[2019-04-29] MEDS: oxyCODONE TAB* 5 MG TAB PO PRN ×3 (04:34→13:17)
[2019-04-29] MEDS: Cyclobenzaprine TAB* 10 MG PO PRN (05:45)
[2019-04-29] MEDS: ceFAZolin 1 GM ADVAN(*) 1 GM in NS 0.9% 50 ML* 50 ML IVPB SCH ×2 (05:46→13:50)
[2019-04-29] MEDS: Lactated Ringers 1000 ML Bag* 1,000 ML IV SCH (05:48)
[2019-04-29 06:03] LABS: Hematocrit 36 % (42-52); Hemoglobin 12.4 g/dL (14.0-18.0); Mean Platelet Volume 7.5 fL (7.4-10.4); Platelet Count 191 10^3/uL (150-450)
[2019-04-29 06:20] LABS: Calcium 8.9 mg/dL (8.6-10.3); EGFR African American 100.5 (>60); EGFR Non-African American 83.1 (>60); Potassium 4.4 mmol/L (3.5-5.0)
--- NOTE | 2019-04-29 07:10 | OP ---
OPERATIVE REPORT: DATE OF OPERATION: 04/28/19 DATE OF : 55 ATTENDING SURGEON: Gabi Rodriguez MD SAFETY REPRESENTATIVE: LINDY Nunn Ms. Booth did help throughout the procedure with preparation of the leg, wound retraction, manipulation of the knee, and wound closure. ANESTHESIOLOGIST: Dr. Zhang. ANESTHESIA: Spinal. 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 OPERATIVE PROCEDURE: Revision left total knee arthroplasty - femoral component and polyethylene liner exchange. TOURNIQUET TIME: 92 minutes. COMPLICATIONS: None. ESTIMATED BLOOD LOSS: 350 cc SPECIMENS: Explanted femur and polyethylene were sent to Pathology. Left knee synovium was sent to Pathology. Multiple culture swabs were sent to Microbiology for cultures and sensitivities. BRIEF HISTORY/INDICATION: Mr. Alvarado is a 63-year-old gentleman, who had left total knee arthroplasty in [address] Quijano in [place]. The patient reports that he always had pain, but since June 2018, he had severe pain with any ambulation. The patient was sent to me after a bone scan showed periprosthetic loosening. He did have significant osteolysis and loosening around the femoral component on plain films as well. The patient and I discussed the risks and benefits of revision surgery and he very much wished to proceed. He understood I would make intraoperative decision on which components I would revise. Informed consent was obtained from the patient. He understood the risks of surgery included but were not limited to bleeding, infection, damage to nearby structures, continued pain, need for further surgery , intraoperative fracture, nerve palsy, hardware failure or loosening, knee stiffness, loss of motion, stroke, heart attack, blood clot, and . He wished to proceed. INTRAOPERATIVE FINDINGS: Intraoperatively, the patient had extensive synovitis. He had abnormal appearance of the synovium with a villonodular-type appearance of brown synovium. He had a visibly, grossly loose femoral component. He had no obvious loosening of the patella or tibial component, significant posteromedial polyethylene wear. HARDWARE USED: [place] femoral revision hardware. Two packages of simplex bone cement. A cement plug was used from the [employer] bone preparation tip. This was a medium cement restrictor. For the femur, a triathlon total stabilizer femoral component cruciate substituting size 6 left with a 15 x 100 mm triathlon total knee cemented stem; medially a 10 mm distal augment and 5 mm posterior augment; laterally, a 5 mm distal augment and 10 mm posterior augment. For the insert, a triathlon X3 size 6 x 9 mm posterior stabilized tibial bearing insert. DESCRIPTION OF PROCEDURE: Mr. Alvarado was identified in the preanesthesia unit. His left lower extremity was marked as the correct operative site. Informed consent was signed and placed in the chart. The patient was taken to the operating room and placed under anesthesia. A Duran catheter was placed. Left lower extremity was prepped and draped in the usual sterile fashion. Preop time -out was made to correctly identify the patient, side, and site. Appropriate perioperative antibiotics were given within 1 hour of incision. The patient's prior left knee incision was opened with a 10-blade. There was sharp dissection down to the extensor mechanism. A new 10-blade was used to make a standard medial parapatellar arthrotomy. The patella was subluxed laterally. There was a moderate amount of serosanguineous joint fluid, which was collected and sent with culture swabs to Microbiology for cultures and sensitivities. The synovium had a villonodular brown appearance, and this was carefully excised with a wide excision using electrocautery. Medium and lateral gutter as well as suprapatellar pouch had synovium excised. Abrasion of synovium was sent to Pathology. There was no evidence of infection or purulence. The femoral component was visibly grossly loose. The knee was flexed up. Osteotome was used to remove the polyethylene. A bone tamp was used to remove the distal femur. There was no anterior femoral cement. Lateral and medial distal/posteriorl distal femur had extensive bone loss from osteolysis. The medial distal femoral condyle was most affected. The bone was irrigated and rongeur as well as curette were used to remove cystic and fibrotic tissue. A decision was made to evaluate the patella and tibia. The patellar and tibial components had scar tissue removed from around the implants. Bone tamps were used and osteotomes to evaluate for loosening of the implants and there was no obvious loosening. The PCL was released. Decision was made to place a posterior stabilized revision femur. Starting reamer was used and the intramedullary canal was a stovepipe type, which was quite large. Reamers were sequentially enlarged for an uncemented stem, but the the reamers were pushing the trial femur into an extended position which was not satisfactory. Decision was made to cement the stem. The revision distal cutting block for the femur was carefully pinned down the distal femur. Cleanup cuts were made and it was noted that there would be distal augments both medially and laterally. Posterior augment both medial and lateral were used as well. The trial femoral component was assembled. The reciprocating saw was used to make box cuts for the posterior stabilized implants. A size 6 was chosen as the correct size. The distal femoral trial was assembled with the appropriate augments as well as a 100 mm stem trial. This was placed and 9 mm insert trial was placed. Knee was taken through a range of motion. There was satisfactory alignments of the knee. The knee had full extension to 130 degrees of flexion with satisfactory patellofemoral tracking. Medial and lateral ligaments were well balanced. C-arm views were used to ensure there was proper placement of the stem and no periprosthetic fractures. C-arm views were satisfactory in AP and lateral planes. All trials were carefully removed. The knee was copiously irrigated with sterile saline. Distal bone of the femur was copiously irrigated with sterile saline and dried. Using 2 packages of simplex bone cement, the final components were cemented into place. A cement restrictor had been placed in the intramedullary canal. The knee was brought out into full extension with a 9 mm insert trial while the cement fully cured. Tourniquet was turned down at 92 minutes. Any excess cement was carefully removed. Once the cement had fully cured, the insert trial was removed. Final insert chosen was a posterior stabilized 9 mm polyethylene insert. This was locked into position on the tibial tray without difficulty. Stability of the insert was checked and rechecked and noted to be stable. Final range of motion was 0 to 130 degrees of flexion with satisfactory patellofemoral tracking. Electrocautery was used to obtain meticulous hemostasis. The extensor mechanism was closed using interrupted #1 Vicryls. The rest of the incision was closed in a layered fashion using 0 and 2-0 Vicryls. The skin was closed using 3-0 nylon suture. Sterile Xeroform, 4x4's, and Webril were used to cover the incision. Adair wrap and cold pack were placed over this. The patient's anesthesia was reversed without difficulty. He was taken to the PACU in stable condition. Intended weightbearing will be weightbearing as tolerated. Intended DVT prophylaxis will be Eliquis. [id number]/[facility] #: [id number] MTDD
[2019-04-29] MEDS: Magnesium Oxide TAB* 400 MG PO SCH (08:30)
[2019-04-29] MEDS: Gabapentin CAP(*) 400 MG PO SCH ×2 (08:31→13:50)
[2019-04-29] MEDS: Docusate CAP* 100 MG PO SCH (08:31)
[2019-04-29] MEDS ORDERED: NS 0.9% 500 ML* 500 ML IV ONE ×2 (08:32→16:07)
[2019-04-29] MEDS: Magnesium Hydroxide LIQ* 30 ML UDC PO SCH (08:42)
[2019-04-29] MEDS ORDERED: Vitamin THERAPEUTIC TAB PO SCH (09:00)
[2019-04-29] MEDS ORDERED: Sertraline* 100 MG TAB PO SCH (09:00)
[2019-04-29] MEDS ORDERED: MULTIVITAMIN PO SCH (09:00)
[2019-04-29] MEDS ORDERED: Apixaban* 2.5 MG TAB PO SCH (09:00)
[2019-04-29] MEDS ORDERED: Ezetimibe TAB* 10 MG PO SCH (09:00)
--- NOTE | 2019-04-29 11:23 | PN ---
Progress Note - Progress Note Date of Service: 04/29/19 SOAP: Subjective: []Pt seen and examined at bedside today. He feels well and desires DC home today , he has met his goals with PT. Denies CP, SOB, dizziness, nausea. Objective: []Gen: Appears well, NAD LLE: Left knee dressing changed, incision is CDI. Thigh is soft, DF/PF intact, DP2+, sensation intact to light touch distally. Calves supple and nontender without erythema, edema or palpable cords Assessment: []POD 1 sp revision LTK arthoplasty femoral component and polyethylene liner Plan: []WBAT PT eliquis 2.5 mg po q12 hr x 30 days post op anticipate DC to home today 500 ml NS bolus for soft BPs, asymptomatic. Encouraged PO intake as well. Encouraged IS Vital Signs Temp 97.7 F 04/29/19 08:01 Pulse 78 04/29/19 08:01 Resp 18 04/29/19 10:41 BP 103/57 04/29/19 08:01 Pulse Ox 93 04/29/19 08:01 Intake & Output 04/28/19 04/29/19 04/29/19 18:59 06:59 18:59 Intake Total 1650 634 Output Total 1000 1550 300 Balance -1000 100 334 Weight 226 lb 12.8 oz Intake: IV Fluids 980 331 LR 980 331 IVPB 50 43 ABX - CEFAZOLIN 50 43 Oral 620 260 Output: Urine 300 Duran 1000 1550 Laboratory Last Values Hgb 12.4 g/dL (14.0-18.0) L 04/29/19 05:44 Hct 36 % (42-52) L 04/29/19 05:44 Plt Count 191 10^3/uL (150-450) 04/29/19 05:44 MPV 7.5 fL (7.4-10.4) 04/29/19 05:44 Sodium 140 mmol/L (135-145) 04/29/19 05:44 Potassium 4.4 mmol/L (3.5-5.0) 04/29/19 05:44 Chloride 105 mmol/L (101-111) 04/29/19 05:44 Carbon Dioxide 29 mmol/L (22-32) 04/29/19 05:44 Anion Gap 6 mmol/L (2-11) 04/29/19 05:44 BUN 11 mg/dL (6-24) 04/29/19 05:44 Creatinine 0.92 mg/dL (0.67-1.17) 04/29/19 05:44 Est GFR ( Amer) 100.5 (>60) 04/29/19 05:44 Est GFR (Non-Af Amer) 83.1 (>60) 04/29/19 05:44 BUN/Creatinine Ratio 12.0 (8-20) 04/29/19 05:44 Glucose 142 mg/dL (70-100) H 04/29/19 05:44 Calcium 8.9 mg/dL (8.6-10.3) 04/29/19 05:44
--- NOTE | 2019-04-29 13:33 | DS ---
Orthopedic Discharge Summary - Discharge Summary Date of Admission:04/28/19 Date of Discharge: 04/29/19 Date of Surgery: 04/28/19 Attending Orthopedic Provider: Dr Rodriguez Pre-operative Diagnosis: Left knee pain Operative Procedure: Left total knee revision of femoral component and polyethylene exchange Disposition of Patient: home with vns Condition of Patient: stable History: HEATHER RENE is a 63 year old M with increasingly severe left knee pain and with periprosthetic loosening. Patient elected to undergo a [left] total [knee revision of femoral component and polyethelene exchange] Hospital Course: HEATHER was admitted to [facility] on 04/28/19. Patient underwent a [ Left total knee revision of femoral component and polyethylene exchange] without complication followed by a brief recovery in PACU and transfer to the Short Stay Surgical Unit in stable condition. Our physical therapy service also participated in this patients care. Post-op day 1 : patient was alert and in no acute distress. Dressing was changed and incision was clean, dry and intact without discharge or erythema. Operative extremity dorsiflexion and plantarflexion intact, sensation intact to light touch distally , DP2+. Physical therapy goals were met. 500 ML NS bolus given for soft BP, patient was asymptomatic. Home Medications Medication Instructions Recorded Confirmed Type Acetaminophen/Diphenhydramine 2 each PO BEDTIME 05/25/18 04/28/19 History [Acetaminophen Pm Caplet] Gabapentin 400 mg PO TID 05/25/18 04/28/19 History Magnesium Oxide/Magnesium 500 mg PO BID 05/25/18 04/28/19 History [Magnesium 300 mg Capsule] Sertraline HCl [Zoloft] 200 mg PO QAM 05/25/18 04/28/19 History Simvastatin [Zocor] 20 mg PO BEDTIME 05/25/18 04/28/19 History Vitamin B Complex CAP* [B Complex 1 cap PO QPM 05/25/18 04/28/19 History CAP*] Cholecalciferol (Vitamin D3) 1,000 unit PO QPM 04/15/19 04/28/19 History [Vitamin D3] Pedi Multivit No.19/Folic Acid 1 tab PO QAM 04/15/19 04/28/19 History [Flintstones Multi-Vit Gummies] Cbd Oil 2.5 ml PO BID PRN 04/28/19 04/28/19 History Ezetimibe 10 mg PO QAM 04/28/19 04/28/19 History Acetaminophen TAB* [Tylenol TAB*] 975 mg PO Q8H tab 04/29/19 Rx Apixaban* [Eliquis*] 2.5 mg PO BID #60 tab 04/29/19 Rx Cyclobenzaprine TAB* [Flexeril 10 10 mg PO TID PRN #30 tab 04/29/19 Rx MG TAB*] Docusate CAP* [Colace Cap*] 100 mg PO BID PRN #90 cap 04/29/19 Rx oxyCODONE/Acetamin 5/325 MG* 1 tab PO Q4H PRN tab MDD 10 04/29/19 Rx [Percocet 5/325 TAB*] oxyCODONE/Acetamin 5/325 MG* 2 tab PO Q4H PRN #70 tab MDD 10 04/29/19 Rx [Percocet 5/325 TAB*] Discharge Instructions following Orthopedic Surgery: Activity: * Weight Bearing as tolerated * Continue physical therapy and occupational therapy exercises as shown * Home physical therapy Wound care: * OK to shower on post-op day 3, no bathing, swimming, or submerging wound. * Use gentle soap, pat dry. Cover with gauze, MERCEDES wrap or tape. * Visiting home nurse to do wound checks. Call Orthopedic office for: * Increased drainage * Redness * Increased pain * Fever Go to ER with shortness of breath or chest pain. Diet: * Regular diet * Increase fluids and fiber to prevent constipation. * Continue to use stool softeners, call office if no bowel motion within 48 hours. Medications See Home Medication List in your packet for medications that you should take after discharge. DVT Prophylaxis: This medication increases bleeding tendency Eliquis Dosin.5 mg, 1 tab every 12 hours x 30 days Pain Control: Percocet Dosin/325 mg 1-2 tabs by mouth every 4-6 hours as needed for pain. Maximum of 10 tabs per day. Hold for sedation, wean off as soon as pain allows Please note that Percocet contains Tylenol (acetaminophen). Maximum daily dose of Tylenol is 4000 mg from all sources. cyclobenzaprine 10 mg 1 tab every 8 hours as needed for muscle spasm. Hold for sedation and wean off as soon as pain allows. Antibiotics are required prior to any dental work. FOLLOW UP: Follow up with [Michael] Within 10-14 days, call for appointment Please call our office with any questions or concerns ([phone])
[2019-04-29 15:47] VITALS: BP 94/61
== END 2019-04-29 15:45 | disposition home or self-care (01) | DRG 302 ==
LOC: AA 10:55 → SSU 18:57
PROVIDERS: ADMIT Orthopaedic Surgery Adult Reconstructive Orthopaedic Surgery; ATTEND Orthopaedic Surgery Adult Reconstructive Orthopaedic Surgery
PROC: 0SPD09Z Removal of Liner from Left Knee Joint, Open Approach (ICD-10-PCS; 2019-04-28)
PROC: 0SUU09Z Supplement Left Knee Joint, Femoral Surface with Liner, Open Approach (ICD-10-PCS; 2019-04-28)
PROC: 0SPU0JZ Removal of Synthetic Substitute from Left Knee Joint, Femoral Surface, Open Approach (ICD-10-PCS; 2019-04-28)
PROC: 0SRU0J9 Replacement of Left Knee Joint, Femoral Surface with Synthetic Substitute, Cemented, Open Approach (ICD-10-PCS; principal; 2019-04-28 13:30)
DX: T84.033A Mechanical loosening of internal left knee prosthetic joint, initial encounter (principal); F32.9 Major depressive disorder, single episode, unspecified; F41.9 Anxiety disorder, unspecified; Z98.84 Bariatric surgery status; Y79.2 Prosthetic and other implants, materials and accessory orthopedic devices associated with adverse incidents; Z90.49 Acquired absence of other specified parts of digestive tract; Z88.2 Allergy status to sulfonamides; Y92.9 Unspecified place or not applicable; Z79.01 Long term (current) use of anticoagulants; Z87.442 Personal history of urinary calculi; Z87.891 Personal history of nicotine dependence
CPT/HCPCS: 36415; 76000; 80048; 85014; 85018; 85049; 87070; 87073; 87205; 87640; 87641; A9270-GY; J0690; J1100; J2250; J2270; J2704; J2795; J3490

== ENCOUNTER 2019-05-01 21:11 | Emergency (ER) | payer BC ==
[2019-05-01] MEDS ORDERED: NS 0.9% 1000 ML** 2,000 ML IV ONE (22:10)
[2019-05-01] MEDS ORDERED: Morphine 4 MG/ML VIAL (1 ml) 4 MG/ML VIAL IV ONE (22:10)
--- NOTE | 2019-05-01 22:16 | ED ---
Lower Extremity - HPI Summary HPI Summary: This patient is a 63 year old M presenting to ED with a chief complaint of left knee pain since 1430 today. Patient had a left knee replacement done three years ago. He had a knee revision surgery on 04/28/19 since there was not enough glue and the knee came lose. After the surgery, patient felt well. However, today during physical therapy, patient states the therapist pushed him too far. Patient states his L knee is very painful, red, and swollen. He took oxycodone at 1930. The patient rates the pain 10/10 in severity. Symptoms aggravated by physical therapy. Symptoms alleviated by oxycodone. Patient reports thigh pain radiating into the hip. Patient reports fever. - History of Current Complaint Chief Complaint: EDExtremityLower Stated Complaint: POSS INFECTION PER PT Time Seen by Provider: 05/01/19 22:09 Hx Obtained From: Patient Mechanism Of Injury: Other - PHysical therapy Onset of Pain: Hours - At 1430 today Onset/Duration: Still Present Severity Initially: Severe Severity Currently: Severe Pain Intensity: 10 Pain Scale Used: 0-10 Numeric Timing: Constant Location: Is Discrete @ - L knee Associated Signs And Symptoms: Positive: Swelling, Redness, Fever, Knee Pain Aggravating Factor(s): Other - Physical therapy Alleviating Factor(s): Other - Oxycodone - Allergies/Home Medications Allergies/Adverse Reactions: Allergies Allergy/AdvReac Type Severity Reaction Status Date / Time Sulfa (Sulfonamide AdvReac Nausea Verified 04/28/19 11:30 Antibiotics) GO,LYTELY Allergy N/V Uncoded 04/28/19 11:30 PMH/Surg Hx/FS Hx/Imm Hx Endocrine/Hematology History: Denies: Hx Diabetes, Hx Systemic Lupus Erythematosus Cardiovascular History: Reports: Hx Hypertension Denies: Hx Congestive Heart Failure, Hx Pacemaker/ICD Comment Only: Hx Valvular Heart Disease - left bundle branch block Respiratory History: Reports: Hx Sleep Apnea Denies: Other Respiratory Problems/Disorders GI History: Reports: Other GI Disorders - hx gastric bypass History: Reports: Hx Kidney Stones - 15 yrs ago Denies: Hx Dialysis, Hx Renal Disease Musculoskeletal History: Reports: Hx Arthritis - hands, left knee Denies: Hx Rheumatoid Arthritis Sensory History: Reports: Hx Contacts or Glasses Denies: Hx Hearing Aid Opthamlomology History: Reports: Hx Contacts or Glasses Psychiatric History: Reports: Hx Depression - on meds Denies: Hx Panic Disorder - Cancer History Hx Chemotherapy: No - Surgical History Surgery Procedure, Year, and Place: GALL BLADDER,RIGHT KNEE ARTHOSCOPY. CLEF PALLET. RILGHT ARM INJURY REPAIR. NERVE BLOCK IN LUMBAR AREA IN SEPTEMBER 2014. Left knee replacement in 2015. Left knee revision 04/28/19. Hx Anesthesia Reactions: No Infectious Disease History: No Infectious Disease History: Denies: Traveled Outside the [place] in Last 30 Days - Family History Known Family History: Positive: Non-Contributory - Social History Alcohol Use: None Hx Substance Use: No Substance Use Type: Reports: None Hx Tobacco Use: No Smoking Status (MU): Never Smoked Tobacco Amount Used/How Often: PACK A DAY FOR 10 YRS Review of Systems Positive: Fever Musculoskeletal: Other - Left knee pain, swelling, and erythema. Thigh pain radiating into hip. All Other Systems Reviewed And Are Negative: Yes Physical Exam - Summary Physical Exam Summary: Appearance: Well-appearing, Well-nourished, lying in bed comfortable, note is made of a low-grade fever Skin: Warm, dry, no obvious rash Eyes: sclera anicteric, no conjunctival pallor ENT: mucous membranes moist Neck: deferred Respiratory: No signs of respiratory distress Cardiovascular: Appears well perfused, pulses are nml Abdomen: deferred Musculoskeletal: left knee has a recent surgical wound with sutures in place, diffuse swelling about the knee with erythema extending approximately 5cm around the wound, no drainage from wound, no obvious fluctuance, unable to range the knee due to pain Neurological: Awake and alert, mentation is normal, speech is fluent and appropriate Psychiatric: affect is normal, does not appear anxious or depressed Triage Information Reviewed: Yes Vital Signs On Initial Exam: Initial Vitals Temp Pulse Resp BP Pulse Ox 99.8 F 106 18 103/80 94 05/01/19 21:22 05/01/19 21:22 05/01/19 21:22 05/01/19 21:22 05/01/19 21:22 Vital Signs Reviewed: Yes Diagnostics - Vital Signs Vital Signs Temp Pulse Resp BP Pulse Ox 05/01/19 21:22 99.8 F 106 18 103/80 94 - Laboratory Result Diagrams: 05/01/19 22:20 05/01/19 22:20 Lab Statement: Any lab studies that have been ordered have been reviewed, and results considered in the medical decision making process. - Radiology L knee Radiology Interpretation Completed By: ED Physician Summary of Radiographic Findings: Hardware is in good position, no acute change. Pending official radiology report. Re-Evaluation - Re-Evaluation First Eval Re-Evaluation Time: 23:50 Comment: Discuss results with patient. Told patient about Dr. Christianson's suggestions. Patient will be discharged home with dx of knee pain. Patient understands and agrees with this plan. Lower Extremity Course/Dx - Course Course Of Treatment: This patient is a 63 year old M presenting to ED with a chief complaint of left knee pain since 1430 today. In the ED course, patient received morphine, fluids, and Keflex. Blood work revealed RBC 3.82, Hgb 13.1, Hct 38, MCV 100, MCH 34, MPV 7.3, glucose 115, CRP 172.10, ESR 65. L knee XR revealed Hardware is in good position, no acute change. Pending official radiology report. Discussed patient case with kalpesh Amezquita, who recommended oral abx, rest, and follow-up with Dr. Rodriguez on Saturday. Patient will be discharged home with dx of knee pain. Patient understands and agrees with this plan. - Diagnoses Provider Diagnoses: Knee pain - Physician Notifications Discussed Care Of Patient With: Aziza Christianson Time Discussed With Above Provider: 23:42 Instructed by Provider To: Other - Discussed patient case with kalpesh Amezquita , who recommended oral abx, rest, and follow-up with Dr. Rodriguez on Saturday. Discharge - Sign-Out/Discharge Documenting (check all that apply): Patient Departure - Discharge Patient Received Moderate/Deep Sedation with Procedure: No - Discharge Plan Condition: Good Disposition: HOME Prescriptions: Cephalexin CAP* [Keflex CAP*] 500 mg PO QID #20 cap Patient Education Materials: Knee Pain (ED) Referrals: Orestes Argueta MD [Primary Care Provider] - Additional Instructions: I spoke with Dr. Christianson, one of Dr. Rodriguez's partners, and she recommended starting you on oral antibiotics in case this is an incipient infection, rest over the weekend, and a followup with Dr. Rodriguez in the office on Saturday. As long as things are settling down over the weekend this is fine, but if the pain and swelling worsen, or you develop a fever of 100.4 or higher, we should see you back here sooner for a recheck and repeat blood work. - Billing Disposition and Condition Condition: GOOD Disposition: Home - Attestation Statements Document Initiated by Patience: Yes Documenting Scribe: Avtar Duran Provider For Whom Patience is Documenting (Include Credential): Galen Jones MD Scribe Attestation: I, Avtar Duran, scribed for Galen Jones MD on 05/02/19 at 2059. Scribe Documentation Reviewed: Yes Provider Attestation: The documentation as recorded by the amieAvtar accurately reflects the service I personally performed and the decisions made by me, Galen Jones MD Status of Scribe Document: Viewed
[2019-05-01 22:28] LABS: ABS Eosinophils 0.2 10^3/ul (0-0.6); ABS Lymphocytes 1.4 10^3/ul (1.0-4.8); ABS Monocytes 0.7 10^3/ul (0-0.8); ABS Neutrophils 6.2 10^3/ul (1.5-7.7); Eosinophil % 1.8 %; Hematocrit 38 % (42-52); Hemoglobin 13.1 g/dL (14.0-18.0); Lymphocyte % 16.1 %; Mean Corpuscular HGB Conc 34 g/dL (31-36); Mean Corpuscular Hemoglobin 34 pg (27-31); Mean Corpuscular Volume 100 fL (80-94); Mean Platelet Volume 7.3 fL (7.4-10.4); Platelet Count 220 10^3/uL (150-450); Red Blood Count 3.82 10^6 /uL (4.18-5.48); Red Cell Distribution Width 12 % (10-15); White Blood Count 8.5 10^3/uL (3.5-10.8)
[2019-05-01 22:44] LABS: BUN/Creatinine Ratio 8.2 (8-20); C Reactive Protein 172.1 mg/L (<8.01); Calcium 9.4 mg/dL (8.6-10.3); EGFR African American 93.5 (>60); EGFR Non-African American 77.2 (>60); Potassium 4.4 mmol/L (3.5-5.0)
[2019-05-01 23:35] LABS: Erythrocyte Sed Rate 65 mm/Hr (0-19)
[2019-05-01] MEDS ORDERED: Cephalexin CAP* 500 MG PO ONE (23:45)
[2019-05-02 00:46] VITALS: BP 118/73
== END 2019-05-02 00:47 | disposition home or self-care (01) ==
LOC: ED 21:11
DX: M25.562 Pain in left knee (principal); M25.462 Effusion, left knee; R50.9 Fever, unspecified; I10 Essential (primary) hypertension; I44.7 Left bundle-branch block, unspecified; F32.9 Major depressive disorder, single episode, unspecified; Z96.652 Presence of left artificial knee joint; Z88.2 Allergy status to sulfonamides; Z88.8 Allergy status to other drugs, medicaments and biological substances
CPT/HCPCS: 36415; 80048; 85025; 85652; 86140; 96361; 96374; 99284; A9270-GY; J2270